=== PATIENT | male | born 1975 | race Caucasian/White ===

== ENCOUNTER 2023-04-23 08:47 | Inpatient (IN) | payer OTHER ==
[2023-04-23] VITALS (18 sets, daily range): BP systolic 108–124; BP diastolic 60–83; PULSE 63–95; RESP 18–19; TEMP 97.8–99.1
[~2023-04-23] VITALS: Ht 157.5 cm; Wt 80.1 kg
[~2023-04-23 08:47] MED LIST: ASPIRIN 81 MG CHEWABLE TABLET PO ONE; DIAZEPAM 5 MG TABLET PO ONE; DiphenhydrAMINE HCL 50 MG CAPSULE PO ONE; SODIUM CHLORIDE 0.9% 1,000 ML IV ONE; SODIUM CHLORIDE 0.9% 1,000 ML ONE
[2023-04-23] MEDS ORDERED: FURO20TA4 PO (09:15)
[2023-04-23] MEDS ORDERED: ETHYL ALCOHOL 62% ANTISEPTIC NASAL SANITIZER 0.6 ML AMPUL NASAL ONE (09:15)
[2023-04-23] MEDS ORDERED: ASPI-1444 PO (09:15)
[2023-04-23] MEDS ORDERED: SACU1TAB PO ×2 (09:15→09:20)
[2023-04-23] MEDS ORDERED: DIGO125T84 PO (09:19)
[2023-04-23] MEDS ORDERED: SPIR-37 PO (09:21)
[2023-04-23] MEDS ORDERED: DiphenhydrAMINE HCL 50 MG CAPSULE ONE (09:51)
[2023-04-23] MEDS ORDERED: DIAZEPAM 5 MG TABLET ONE (09:51)
[2023-04-23] MEDS ORDERED: ASPIRIN 81 MG CHEWABLE TABLET ONE (09:52)
[2023-04-23] MEDS ORDERED: LIDOCAINE/PF 1% 30 ML VIAL ONE (12:28)
[2023-04-23] MEDS ORDERED: SODIUM BICARBONATE 50 MEQ/50 ML VIAL ONE (12:28)
[2023-04-23] MEDS ORDERED: HEPARIN SODIUM 1000 UNITS/NS 1,000 ML ONE (12:28)
[2023-04-23] MEDS ORDERED: IOHEXOL 300 MG/ML 100 ML VIAL ONE (12:28)
[2023-04-23] MEDS ORDERED: MIDAZOLAM HCL 2 MG/2 ML VIAL ONE (13:02)
[2023-04-23] MEDS ORDERED: FentaNYL CITRATE PF 100 MCG/2 ML VIAL ONE (13:02)
[2023-04-23] MEDS ORDERED: IOHEXOL 300 MG/ML 100 ML VIAL IARTER ONE (13:15)
[2023-04-23] MEDS ORDERED: FentaNYL CITRATE PF 100 MCG/2 ML VIAL IVP ONE (13:15)
[2023-04-23] MEDS ORDERED: HEPARIN SODIUM 1000 UNITS/NS 1,000 ML IARTER ONE (13:15)
[2023-04-23] MEDS ORDERED: LIDOCAINE 1% 30 ML/SOD BICARB 8.4% 4 ML SQ ONE (13:15)
[2023-04-23] MEDS ORDERED: MIDAZOLAM HCL 2 MG/2 ML VIAL IVP ONE (13:15)
[2023-04-23] MEDS ORDERED: IOHEXOL 300 MG/ML 50 ML VIAL IARTER ONE (13:30)
[2023-04-23] MEDS ORDERED: FLUT16H NASAL (13:45)
[2023-04-23] MEDS ORDERED: AZEL6DRO5 OU (13:45)
[2023-04-23] MEDS ORDERED: OMEP20CA12 PO (13:45)
[2023-04-23] MEDS ORDERED: LORA10TA7 PO (13:45)
[2023-04-23] MEDS ORDERED: CHOL200074 PO (13:45)
[2023-04-23] MEDS ORDERED: ZOLPIDEM TARTRATE 5 MG TABLET PO PRN (15:30)
[2023-04-23] MEDS ORDERED: FLUTICASONE PROPIONATE 50 MCG/SPRAY 16 GM NASAL SPRAY NASAL PRN (15:30)
[2023-04-23] MEDS ORDERED: MORPHINE SULFATE 2 MG/ML SYRINGE IVP PRN (15:30)
[2023-04-23] MEDS ORDERED: HYDROCODONE/ACETAMINOPHEN 5-325 MG TABLET PO PRN (15:30)
[2023-04-23] MEDS ORDERED: ONDANSETRON HCL 4 MG/2 ML VIAL IVP PRN (15:30)
[2023-04-23] MEDS ORDERED: MAGNESIUM HYDROXIDE SUSPENSION 30 ML UDCUP PO PRN (15:30)
[2023-04-23] MEDS ORDERED: BISACODYL 10 MG RECTAL RECTAL SUPPOSITORY PR PRN (15:30)
[2023-04-23] MEDS ORDERED: LORATADINE 10 MG TABLET PO PRN (15:30)
[2023-04-23] MEDS ORDERED: ACETAMINOPHEN 325 MG TABLET PO PRN (15:30)
[2023-04-23] MEDS: HEPARIN SODIUM,PORCINE 5,000 UNITS/ML VIAL SQ SCH ×2 (16:00→23:56)
[2023-04-23] MEDS: SACUBITRIL/VALSARTAN 24-26 MG TABLET PO SCH (20:13)
[2023-04-23] MEDS: DOCUSATE SODIUM 100 MG CAPSULE PO SCH (21:00)
[2023-04-24] VITALS (7 sets, daily range): BP systolic 97–128; BP diastolic 60–73; PULSE 52–65; RESP 17–19; TEMP 97.8–98.5
[2023-04-24] MEDS ORDERED: OMEPRAZOLE 20 MG CAPSULE PO SCH (06:30)
[2023-04-24] MEDS: HEPARIN SODIUM,PORCINE 5,000 UNITS/ML VIAL SQ SCH ×2 (08:00→16:00)
[2023-04-24] MEDS ORDERED: SPIRONOLACTONE 25 MG TABLET PO SCH (09:00)
[2023-04-24] MEDS ORDERED: ASPIRIN 81 MG DR TABLET PO SCH (09:00)
[2023-04-24] MEDS ORDERED: DIGOXIN 125 MCG TABLET PO SCH (09:00)
[2023-04-24] MEDS ORDERED: FUROSEMIDE 20 MG TABLET PO SCH (09:00)
[2023-04-24] MEDS ORDERED: PANTOPRAZOLE SODIUM 40 MG DR TABLET PO SCH (09:00)
[2023-04-24] MEDS: SACUBITRIL/VALSARTAN 24-26 MG TABLET PO SCH (09:10)
[2023-04-24] MEDS: DOCUSATE SODIUM 100 MG CAPSULE PO SCH (09:10)
[2023-04-24 09:22] LABS: BASOPHILS % (AUTO) 0.6 % (0.0-2.0); EOSINOPHILS % (AUTO) 9.4 % (1.0-6.0); HEMATOCRIT 44.6 % (41-53); HEMOGLOBIN 15.4 g/dL (13.5-17.5); LYMPHOCYTES # (AUTO) 1.1 K/uL (1.0-4.8); LYMPHOCYTES % (AUTO) 17.5 % (22.0-44.0); MEAN CORPUSCULAR HEMOGLOBIN 32.4 pg (26.0-34.0); MEAN CORPUSCULAR HGB CONC 34.4 G/dL (31.0-37.0); MEAN CORPUSCULAR VOLUME 94 fL (80-100); MONOCYTES # (AUTO) 0.3 K/uL (0.1-1.0); MONOCYTES % (AUTO) 4.6 % (2.0-9.0); NEUTROPHILS # (AUTO) 4.3 K/uL (1.8-7.7); NEUTROPHILS % (AUTO) 67.9 % (40.0-70.0); PLATELET COUNT (AUTO) 151 K/uL (150-450); RED BLOOD CELL COUNT(AUTO) 4.74 MIL/uL (4.50-5.90); RED CELL DISTRIBUTION WIDTH 13.5 % (11.5-14.5); WHITE BLOOD COUNT (AUTO) 6.3 K/uL (4.5-11.0)
[2023-04-24 09:32] LABS: ANION GAP 7 mmol/L (8-16); CALCIUM, TOTAL 9.1 mg/dL (8.8-10.5); CARBON DIOXIDE 29 mmol/L (22-29); CHLORIDE 103 mmol/L (98-107); CREATININE 0.92 mg/dL (0.60-1.30); GLOMERULAR FILTR. RATE CALC > 60 mL/min (>60); GLUCOSE,RANDOM 123 mg/dL (70-110); POTASSIUM 4.2 mmol/L (3.5-5.1); SODIUM SERUM 139 mmol/L (136-145); UREA NITROGEN, BLOOD 12 mg/dL (7-18)
== END 2023-04-24 19:10 | disposition left against medical advice (07) | DRG 192 ==
LOC: 5S 08:47 → EDSTATUS 10:30 → 5S 04-24 10:58
PROVIDERS: ADMIT Internal Medicine Interventional Cardiology; ATTEND Internal Medicine Interventional Cardiology
PROC: 4A023N8 Measurement of Cardiac Sampling and Pressure, Bilateral, Percutaneous Approach (ICD-10-PCS; principal; 2023-04-23)
PROC: B2111ZZ Fluoroscopy of Multiple Coronary Arteries using Low Osmolar Contrast (ICD-10-PCS; 2023-04-23)
PROC: B2151ZZ Fluoroscopy of Left Heart using Low Osmolar Contrast (ICD-10-PCS; 2023-04-23)
DX: I42.0 Dilated cardiomyopathy (principal); I27.20 Pulmonary hypertension, unspecified; I50.22 Chronic systolic (congestive) heart failure; I49.9 Cardiac arrhythmia, unspecified; Z53.29 Procedure and treatment not carried out because of patient's decision for other reasons; E79.0 Hyperuricemia without signs of inflammatory arthritis and tophaceous disease; Z79.899 Other long term (current) drug therapy; Z79.82 Long term (current) use of aspirin
CPT/HCPCS: 80048; 85025; 87081; 93005; 93460; J1644; J2250; J3010; J3490; J7030; Q9967